=== PATIENT | female | born 1970 | race Native Hawaiian/Other Pacific Islander ===

== ENCOUNTER 2021-09-24 07:23 | Emergency (ER) | payer SELFPAY ==
--- NOTE | 2021-09-24 08:31 | XRay Report ---
CHEST 2 VIEWS INDICATION: rib pain. COMPARISON: none FINDINGS: Support devices: None. Heart: Within normal limits. Lungs/pleura: No acute air space or interstitial disease. No pneumothorax. Additional findings: No rib abnormality is detected on x-ray. IMPRESSION: Unremarkable chest films. Signer Name: Velasquez Richardson Jr, MD Signed: 09/24/2021 8:27 AM Workstation Name: [id number]
[2021-09-24] MEDS ORDERED: predniSONE 20 MG TAB PO ONE (09:07)
[2021-09-24] MEDS ORDERED: ACETAMINOPHEN W/CODEINE 300-30 MG TAB PO ONE (09:07)
[2021-09-24] MEDS ORDERED: KETOROLAC 10 MG TAB PO ONE (09:07)
[2021-09-24] MEDS ORDERED: CYCLOBENZAPRINE 10 MG TAB PO ONE (09:07)
--- NOTE | 2021-09-24 09:11 | Emergency Department Report ---
ED General Adult HPI - General Chief complaint: Pain General Stated complaint: CHEST PAIN Time Seen by Provider: 09/24/21 08:53 Source: patient Mode of arrival: Ambulatory Limitations: No Limitations - History of Present Illness Initial comments: 51-year-old female with no past medical history presents to the emergency department for evaluation of left rib pain. She states that on Monday, she was at an amusement park [place] one of the roller coasters, and her left side was pressed against the side of the roller coaster and something hit her repeatedly the area while she was on the ride. She started to have pain on Monday and has been having increasing pain since then. He states that pain has been unrelieved by Tylenol at home. She denies shortness of breath, nausea, vomiting, dizziness, diaphoresis, and fever. She states that pain is 10 out of 10. MD Complaint: Left rib pain -: Gradual, days(s) (5) Location: left (Left rib area) Radiation: non-radiation Severity scale (0 -10): 10 Quality: aching Consistency: constant Worsens with: movement Associated Symptoms: denies: confusion, chest pain, cough, diaphoresis, fever/chills, headaches, loss of appetite, malaise, nausea/vomiting, rash, seizure, shortness of breath, syncope, weakness Treatments Prior to Arrival: other (Tylenol) - Related Data Previous Rx's Medication Instructions Recorded Last Taken Type Acetaminophen/Codeine [Tylenol 1 tab PO Q6H PRN #12 tab 09/24/21 Unknown Rx /Codeine # 3 tab] Cyclobenzaprine [Flexeril] 10 mg PO TID PRN #30 tab 09/24/21 Unknown Rx Naproxen [Naprosyn] 500 mg PO BID 7 Days #14 tab 09/24/21 Unknown Rx Allergies Allergy/AdvReac Type Severity Reaction Status Date / Time No Known Allergies Allergy Verified 09/24/21 07:37 ED Review of Systems ROS: Stated complaint: CHEST PAIN Other details as noted in HPI Comment: All other systems reviewed and negative Constitutional: denies: chills, fever Eyes: denies: vision change ENT: denies: congestion Respiratory: denies: cough, shortness of breath, SOB with exertion, SOB at rest, stridor, wheezing Cardiovascular: denies: chest pain, palpitations, dyspnea on exertion, orthopnea Gastrointestinal: denies: abdominal pain, nausea, vomiting Musculoskeletal: denies: back pain Skin: denies: rash Neurological: denies: headache, weakness ED Past Medical Hx - Past Medical History Previous Medical History?: No - Surgical History Past Surgical History?: No - Medications Home Medications: Home Medications Medication Instructions Recorded Confirmed Last Taken Type Acetaminophen/Codeine [Tylenol 1 tab PO Q6H PRN #12 tab 09/24/21 Unknown Rx /Codeine # 3 tab] Cyclobenzaprine [Flexeril] 10 mg PO TID PRN #30 tab 09/24/21 Unknown Rx Naproxen [Naprosyn] 500 mg PO BID 7 Days #14 tab 09/24/21 Unknown Rx ED Physical Exam - General Limitations: No Limitations General appearance: alert, in no apparent distress - Head Head exam: Present: atraumatic, normocephalic - Eye Eye exam: Present: normal appearance, PERRL. Absent: conjunctival injection - Neck Neck exam: Present: normal inspection, full ROM. Absent: tenderness - Respiratory Respiratory exam: Present: normal lung sounds bilaterally. Absent: respiratory distress, wheezes, rales, rhonchi, stridor, chest wall tenderness (Left rib area) - Cardiovascular Cardiovascular Exam: Present: regular rate, normal heart sounds - Expanded Cardiovascular Exam Expanded 1 - Tenderness - GI/Abdominal GI/Abdominal exam: Present: soft, normal bowel sounds. Absent: distended, tenderness, guarding, rebound, rigid - Extremities Exam Extremities exam: Present: normal inspection, full ROM - Back Exam Back exam: Present: normal inspection. Absent: CVA tenderness (R), CVA tenderness (L) - Neurological Exam Neurological exam: Present: alert, oriented X3, normal gait - Psychiatric Psychiatric exam: Present: normal affect, normal mood - Skin Skin exam: Present: warm, dry, intact, normal color ED Course Vital Signs 09/24/21 09/24/21 09/24/21 07:38 09:18 09:40 Temperature 97.8 F 97.8 F Pulse Rate 64 59 L Respiratory 16 16 Rate Blood Pressure 126/90 120/84 [Left] O2 Sat by Pulse 98 100 99 Oximetry ED Medical Decision Making - Radiology Data Radiology results: report reviewed, image reviewed Chest x-ray: FINDINGS: Support devices: None. Heart: Within normal limits. Lungs/pleura: No acute air space or interstitial disease. No pneumothorax. Additional findings: No rib abnormality is detected on x-ray. IMPRESSION: Unremarkable chest films. - Medical Decision Making 51-year-old female with no past medical history presents to the [facility] for evaluation of left rib pain. She states that on Monday, she was at an amusement park riding one of the roller coasters, and her left side was pressed against the side of the roller coaster and something hit her repeatedly the area while she was on the ride. She started to have pain on Monday and has been having increasing pain since then. He states that pain has been unrelieved by Tylenol at home. She denies shortness of breath, nausea, vomiting, dizziness, diaphoresis, and fever. She states that pain is 10 out of 10. Chest x-ray without any acute abnormalities noted. No gross abnormalities noted on exam. Patient will be treated with one-time dose of steroids, anti- inflammatories, muscle relaxant, and pain medication while in the emergency department and discharged home with naproxen, Flexeril, and Tylenol 3 to use as needed for pain. She is advised to take medications as prescribed and follow-up with primary care provider if no improvement or worsening symptoms. She verbalized understanding of and agreement with plan of care. Critical care attestation.: If time is entered above; I have spent that time in minutes in the direct care of this critically ill patient, excluding procedure time. ED Disposition Clinical Impression: Rib pain on left side Disposition: HOME / SELF CARE / HOMELESS Is pt being admited?: No Does the pt Need Aspirin: No Condition: Stable Instructions: Chest Wall Pain, [id number], Rib Contusion Additional Instructions: Take medications as prescribed. Follow-up with primary care provider if no impr ovement or worsening symptoms. Return to the emergency department as needed. Prescriptions: Cyclobenzaprine [Flexeril] 10 mg PO TID PRN #30 tab PRN Reason: Pain , Severe (7-10) Naproxen [Naprosyn] 500 mg PO BID 7 Days #14 tab Acetaminophen/Codeine [Tylenol /Codeine # 3 tab] 1 tab PO Q6H PRN #12 tab PRN Reason: Pain , Severe (7-10) Referrals: WERO HAYWARD MD [Staff Physician] - 3-5 Days Forms: Work/School Release Form(ED) Time of Disposition: 09:10
[2021-09-24 09:28] VITALS: BP 120/84
== END 2021-09-24 09:41 | disposition home or self-care (01) ==
LOC: ED 07:23
DX: R07.81 Pleurodynia (principal)
CPT/HCPCS: 71046; 99283